=== PATIENT | female | born 1970 | race Caucasian/White ===

== ENCOUNTER → 2024-10-28 14:29 | Outpatient (REF) | payer BC, SELFPAY | LOC: HWWDC 14:29 | PROVIDERS: ATTENDING PHYSICIAN Obstetrics & Gynecology; FAMILY PHYSICIAN Physician Assistant Medical | DX: Z12.31 Encounter for screening mammogram for malignant neoplasm of breast (principal) | CPT/HCPCS: 77063; 77067 ==

== ENCOUNTER → 2024-11-11 14:51 | Outpatient (REF) | payer BC, SELFPAY | LOC: HWRAD 14:51 | PROVIDERS: ATTENDING PHYSICIAN Physician Assistant Medical | DX: M25.522 Pain in left elbow (principal) | CPT/HCPCS: 73080 ==